=== PATIENT | female | born 1980 | race Caucasian/White ===

== ENCOUNTER 2019-11-24 19:35 | Emergency (ER) | payer MEDICAID ==
[~2019-11-24] VITALS: Ht 165.1 cm; Wt 117.9 kg
[2019-11-24 19:42] VITALS: Ht 165.1 cm; Wt 117.9 kg
[2019-11-24 21:13] VITALS: BP 155/75
== END 2019-11-24 21:13 | disposition home or self-care (01) ==
LOC: ED 19:35
DX: S93.602A Unspecified sprain of left foot, initial encounter (principal); I10 Essential (primary) hypertension; E11.9 Type 2 diabetes mellitus without complications; Z88.1 Allergy status to other antibiotic agents; Z88.5 Allergy status to narcotic agent; Z88.8 Allergy status to other drugs, medicaments and biological substances; X50.1XXA Overexertion from prolonged static or awkward postures, initial encounter; Y93.89 Activity, other specified; Y92.89 Other specified places as the place of occurrence of the external cause; Y99.8 Other external cause status
CPT/HCPCS: Q0092

== ENCOUNTER 2020-02-22 23:54 | Emergency (ER) | payer MEDICAID, SELFPAY ==
[~2020-02-22] VITALS: Ht 165.1 cm; Wt 99.8 kg
[2020-02-22 23:58] VITALS: Ht 165.1 cm; Wt 99.8 kg
[2020-02-23 03:23] VITALS: BP 172/91
== END 2020-02-23 03:23 | disposition home or self-care (01) ==
LOC: ED 23:54
DX: U07.1 COVID-19 (principal); I10 Essential (primary) hypertension; E11.9 Type 2 diabetes mellitus without complications; Z88.2 Allergy status to sulfonamides
CPT/HCPCS: U0003-CS

== ENCOUNTER 2020-02-24 21:11 | Emergency (ER) | payer MEDICAID, SELFPAY ==
[~2020-02-24] VITALS: Ht 165.1 cm; Wt 90.7 kg
[2020-02-24 21:14] VITALS: Ht 165.1 cm; Wt 90.7 kg
[2020-02-24 22:48] VITALS: BP 104/68
== END 2020-02-24 22:48 | disposition home or self-care (01) ==
LOC: ED 21:11
DX: U07.1 COVID-19 (principal); I10 Essential (primary) hypertension; E11.9 Type 2 diabetes mellitus without complications; Z88.2 Allergy status to sulfonamides; Z88.1 Allergy status to other antibiotic agents; Z88.8 Allergy status to other drugs, medicaments and biological substances

== ENCOUNTER 2020-03-18 05:30 | Emergency (ER) | payer MEDICAID, SELFPAY ==
[~2020-03-18] VITALS: Ht 165.1 cm; Wt 90.7 kg
[2020-03-18 05:37] VITALS: BP 143/88; Ht 165.1 cm; Wt 90.7 kg
== END 2020-03-18 06:37 | disposition home or self-care (01) ==
LOC: ED 05:30
DX: R43.8 Other disturbances of smell and taste (principal); Z20.828 Contact with and (suspected) exposure to other viral communicable diseases; Z13.9 Encounter for screening, unspecified